=== PATIENT | male | born 1945 | race Caucasian/White ===

== ENCOUNTER → 2016-09-21 | Outpatient (CLI) | payer OTHER ==
[~2016-09-21] MED LIST: ASCO1CAP3 PO; ASPI81TA28 PO; CHOL1000 PO; FOLIC ACID PO; LISI-725 PO; MISC1CAP60 PO; MULT-506 PO; OMEG10007 PO; PRLSR20 PO
[2016-09-21 12:54] LABS: BASO % 0.2 %; BASO ABS # 0.02 K/uL (0-0.2); COMPLETE YES; EOS % 4.1 %; HEMATOCRIT 36.1 % (42-52); IG% 0.1 %; LYMPH % 19.8 %; LYMPH ABS # 1.83 K/uL (1.2-3.4); MEAN CORPUSCULAR HEMOGLOBIN 29.8 pg (25-34); MEAN CORPUSCULAR HGB CONC 33.8 g/dl (32-36); MEAN PLATELET VOLUME 10.8 fL (7.4-10.4); MONO % 9.7 %; NEUT % 66.1 %; PLATELET COUNT 327 K/uL (130-400); WHITE BLOOD COUNT 9.25 K/uL (4.8-10.8)
[2016-09-21 13:21] LABS: ALB/GLOB RATIO 0.9 (0.9-2); ALT/SGPT 23 U/L (12-78); AST/SGOT 18 U/L (15-37); BLOOD UREA NITROGEN 25 mg/dl (7-18); BUN/CREATININE RATIO 17.9 (10-20); CALCIUM 9.1 mg/dl (8.5-10.1); CARBON DIOXIDE 23 mmol/L (21-32); CHLORIDE 108 mmol/L (98-107); GLUCOSE 89 mg/dl (70-99); HDL CHOLESTEROL 36 mg/dl; POTASSIUM 4.7 mmol/L (3.5-5.1); SODIUM 139 mmol/L (136-145)
[2016-09-21 13:22] LABS: ALKALINE PHOSPHATASE 60 U/L (45-117); CHOLESTEROL 151 mg/dl (0-200); CHOLESTEROL/HDL RATIO 4.2; LDL CHOLESTEROL CALCULATED 90 mg/dl; TRIGLYCERIDES 125 mg/dl (0-150); VERY LOW DENSITY LIPOPROT CALC 25 mg/dl
== END | disposition home or self-care (01) ==
LOC: C.LABPBG 08:27
PROVIDERS: ATTEND Family Medicine
DX: I10 Essential (primary) hypertension (principal); E78.5 Hyperlipidemia, unspecified; K21.9 Gastro-esophageal reflux disease without esophagitis; D64.9 Anemia, unspecified; R33.9 Retention of urine, unspecified; K81.1 Chronic cholecystitis

== ENCOUNTER → 2017-09-23 | Outpatient (CLI) | payer OTHER ==
[2017-09-23 13:31] LABS: BASO % 0.4 %; BASO ABS # 0.04 K/uL (0-0.2); EOS % 4.1 %; EOS ABS # 0.39 K/uL (0-0.5); HEMATOCRIT 33.8 % (42-52); HEMOGLOBIN 11.4 g/dL (14.0-18.0); IG# 0.03 K/uL (0.00-0.02); LYMPH % 21.1 %; LYMPH ABS # 2.02 K/uL (1.2-3.4); MEAN CELL VOLUME 90.1 fL (80-100); MEAN CORPUSCULAR HEMOGLOBIN 30.4 pg (25-34); MEAN CORPUSCULAR HGB CONC 33.7 g/dl (32-36); MEAN PLATELET VOLUME 10.3 fL (7.4-10.4); MONO % 8.8 %; MONO ABS # 0.84 K/uL (0.11-0.59); NEUT % 65.3 %; NEUT ABS # 6.25 K/uL (1.4-6.5); PLATELET COUNT 320 K/uL (130-400); RED CELL DISTRIBUTION WIDTH CV 13.3 % (11.5-14.5); RED CELL DISTRIBUTION WIDTH SD 43.6 fL (36.4-46.3); WHITE BLOOD COUNT 9.57 K/uL (4.8-10.8)
[2017-09-23 13:53] LABS: ALBUMIN 3.7 gm/dl (3.4-5.0); ALT/SGPT 30 U/L (12-78); AST/SGOT 22 U/L (15-37); BLOOD UREA NITROGEN 23 mg/dl (7-18); CARBON DIOXIDE 26 mmol/L (21-32); CREATININE 1.38 mg/dl (0.60-1.40); GLUCOSE 88 mg/dl (70-99); POTASSIUM 4.7 mmol/L (3.5-5.1); SODIUM 138 mmol/L (136-145)
[2017-09-23 14:04] LABS: ALKALINE PHOSPHATASE 70 U/L (45-117); CHOLESTEROL 151 mg/dl (0-200); LDL CHOLESTEROL CALCULATED 99 mg/dl
== END | disposition home or self-care (01) ==
LOC: C.LABPBG 08:38
PROVIDERS: ATTEND Family Medicine
DX: I10 Essential (primary) hypertension (principal); E78.5 Hyperlipidemia, unspecified; D64.9 Anemia, unspecified; N40.1 Benign prostatic hyperplasia with lower urinary tract symptoms; N13.9 Obstructive and reflux uropathy, unspecified

== ENCOUNTER → 2017-10-18 | Outpatient (CLI) | payer OTHER | END | disposition home or self-care (01) | LOC: C.LABPBG 09:39 | PROVIDERS: ATTEND Family Medicine | DX: Z00.00 Encounter for general adult medical examination without abnormal findings (principal) ==